=== PATIENT | male | born 1990 | race Caucasian/White ===

== ENCOUNTER 2021-08-22 07:20 | Emergency (ER) | payer OTHER ==
[~2021-08-22] VITALS: Ht 190.5 cm; Wt 90.9 kg
[2021-08-22 07:29] VITALS: TEMP 98.5
[2021-08-22 08:28] VITALS: BP 145/74; PULSE 85
== END 2021-08-22 08:28 | disposition home or self-care (01) ==
LOC: COL.ER 07:20
DX: S63.287A Dislocation of proximal interphalangeal joint of left little finger, initial encounter (principal); W21.01XA Struck by football, initial encounter; Y93.61 Activity, american tackle football